=== PATIENT | female | born 1990 | race Caucasian/White ===

== ENCOUNTER → 2022-01-16 10:11 | Outpatient (BNVA) | payer MEDICAID, SELFPAY | PROVIDERS: PCP Nurse Practitioner Family; Visit Provider Obstetrics & Gynecology | DX: N92.6 Irregular menstruation, unspecified (principal) | CPT/HCPCS: 84702 ==

== ENCOUNTER → 2022-01-26 08:58 | Outpatient (BNVA) | payer MEDICAID, SELFPAY | PROVIDERS: PCP Nurse Practitioner Family; Visit Provider Obstetrics & Gynecology | DX: O20.0 Threatened abortion (principal) | CPT/HCPCS: 84702 ==

== ENCOUNTER 2022-01-30 17:08 | Emergency (ER) | payer MEDICAID, SELFPAY | END 2022-01-30 17:30 | disposition left against medical advice (07) | PROVIDERS: Emergency Provider Family Medicine; PCP Obstetrics & Gynecology | DX: Z53.21 Procedure and treatment not carried out due to patient leaving prior to being seen by health care provider (principal) | CPT/HCPCS: 84702 ==

== ENCOUNTER → 2022-02-03 08:45 | Outpatient (BNVA) | payer MEDICAID, SELFPAY | PROVIDERS: PCP Obstetrics & Gynecology; Visit Provider Obstetrics & Gynecology | DX: Z36.87 Encounter for antenatal screening for uncertain dates (principal) | CPT/HCPCS: 76817 ==

== ENCOUNTER → 2022-02-10 09:15 | Outpatient (BNVA) | payer MEDICAID, SELFPAY | PROVIDERS: PCP Obstetrics & Gynecology; Visit Provider Obstetrics & Gynecology | DX: O26.891 Other specified pregnancy related conditions, first trimester (principal); N85.8 Other specified noninflammatory disorders of uterus; Z3A.01 Less than 8 weeks gestation of pregnancy | CPT/HCPCS: 76817 ==

== ENCOUNTER → 2022-02-28 11:09 | Outpatient (BNVA) | payer MEDICAID, SELFPAY | PROVIDERS: PCP Obstetrics & Gynecology; Visit Provider Obstetrics & Gynecology | DX: O09.899 Supervision of other high risk pregnancies, unspecified trimester (principal); Z3A.09 9 weeks gestation of pregnancy | CPT/HCPCS: 76817 ==

== ENCOUNTER → 2022-03-13 15:08 | Outpatient (BNVA) | payer MEDICAID, SELFPAY | PROVIDERS: PCP Obstetrics & Gynecology; Visit Provider Obstetrics & Gynecology | DX: O09.899 Supervision of other high risk pregnancies, unspecified trimester (principal) | CPT/HCPCS: 80307; 84315; 84443; 86762; 86803; 87086; 87340; 87491; 87591; 87661; 87806; 88175 ==

== ENCOUNTER → 2022-03-31 14:48 | Outpatient (BNVA) | payer MEDICAID, SELFPAY | PROVIDERS: PCP Obstetrics & Gynecology; Visit Provider Nurse Practitioner Women's Health | DX: O09.899 Supervision of other high risk pregnancies, unspecified trimester (principal); E11.9 Type 2 diabetes mellitus without complications; Z3A.00 Weeks of gestation of pregnancy not specified | CPT/HCPCS: 84315; 85025; 86850; 86900 ==

== ENCOUNTER → 2022-04-28 15:56 | Outpatient (BNVA) | payer MEDICAID, SELFPAY | PROVIDERS: PCP Obstetrics & Gynecology; Visit Provider Obstetrics & Gynecology | DX: O09.899 Supervision of other high risk pregnancies, unspecified trimester (principal); Z3A.00 Weeks of gestation of pregnancy not specified | CPT/HCPCS: 84315; 87086 ==

== ENCOUNTER → 2022-05-15 15:50 | Outpatient (BNVA) | payer MEDICAID, SELFPAY | PROVIDERS: PCP Obstetrics & Gynecology; Visit Provider Obstetrics & Gynecology | DX: O09.899 Supervision of other high risk pregnancies, unspecified trimester (principal); Z3A.00 Weeks of gestation of pregnancy not specified | CPT/HCPCS: 84315; 87086 ==

== ENCOUNTER 2022-05-31 12:05 | Outpatient (CLI) | payer MEDICAID, SELFPAY ==
[2022-05-31] VITALS (15 sets, daily range): BP systolic 125–178; BP diastolic 76–110; PULSE 90–107; RESP 16; TEMP 36.6–36.7; BMI 30.6
--- NOTE | 2022-05-31 12:44 | US_ITS ---
WS: [id number] ULTRASOUND OB FOCUSED HISTORY: Leaking fluid, bleeding 22.5 weeks COMPARISON: 05/11/2022 Single intrauterine gestation is identified. Fetus in breech position. head is dolichocephalic. This may be due to the lack of amniotic fluid surrounding the fetus. heart rate at 147 BPM. Very little amount of amniotic fluid is identified. CORINNA is calculated at 6.5 cm. The single deepest v ertical pocket is 2.2 cm. For this early gestational age more amniotic fluid should be present. Transabdominal and transvaginal imaging is performed of the cervix. The cervical length appears open. Highly suspicious for cervical insufficiency. There is fluid extending along the cervical length. Al so of concern is a loop of the umbilical cord position near the cervical os. Fetus is in breech position. Placenta is posterior. US/US OB limited [id number] IMPRESSION: 1. Highly suspicious for cervical insufficiency. Amniotic fluid extends along the cervical length. 2. A loop of umbilical cord crosses the open cervical os. 3. Oligohydramnios. For this gestational age there should be more abundant amn iotic fluid present. 4. Mild deformity of the head due to the oligohydramnios. Patient is at risk for pulmonary hypoplasia. Report called to Nat in OB.
[2022-05-31 17:16] LABS: Basophils % 0.3 %; Eosinophils # 0.2 10^3/uL (0.0-0.8); Eosinophils % 1.2 %; Hematocrit 36.8 % (37.0-47.0); Hemoglobin 12.8 g/dL (11.5-15.3); Lymphocytes # 2.6 10^3/uL (0.8-4.8); Lymphocytes % 21.7 %; Mean Corpuscular HGB Conc 34.8 g/dL (30.0-36.0); Mean Corpuscular Hemoglobin 30.8 pg (28.0-34.0); Mean Corpuscular Volume 88.5 fl (81-99); Mean Platelet Volume 9.6 fL (7.4-10.4); Monocytes # 0.7 10^3/uL (0.2-0.9); Monocytes % 5.5 %; Neutrophils # 8.27 10^3/uL (1.8-7.7); Neutrophils % 68.6 %; Nucleated Red Blood Cells % 0 %; Platelet Count 263 10^3/cmm (130-400); Red Blood Count 4.16 10^6/uL (4.1-5.3); Red Cell Distribution Width 14.1 % (12.1-15.1); White Blood Count 12.1 10^3/uL (4.0-10.0)
[2022-05-31 17:38] LABS: Slide Review Slide Review Perform
== END 2022-05-31 19:35 | disposition intermediate care facility (04) ==
LOC: OPOB 12:20 → OBGYN 12:32
PROVIDERS: Obstetrics & Gynecology; PCP Obstetrics & Gynecology; Visit Provider Obstetrics & Gynecology
DX: O46.90 Antepartum hemorrhage, unspecified, unspecified trimester (principal); Z3A.00 Weeks of gestation of pregnancy not specified
CPT/HCPCS: 36415; 76815; 85025; 99211